=== PATIENT | male | born 2000 | race Caucasian/White ===

== ENCOUNTER 2022-02-27 08:48 | Emergency (ER) | payer OTHER | END 2022-02-27 11:42 | disposition home or self-care (01) | LOC: FER 08:48 | DX: M84.442A Pathological fracture, left hand, initial encounter for fracture (principal); W21.06XA Struck by volleyball, initial encounter; Y92.009 Unspecified place in unspecified non-institutional (private) residence as the place of occurrence of the external cause; Z28.310 Unvaccinated for COVID-19 | CPT/HCPCS: 73110; 73130 ==